=== PATIENT | male | born 1985 | race Caucasian/White ===

== ENCOUNTER → 2020-12-18 | Outpatient (CLI) | payer OTHER ==
[~2020-12-18] VITALS: Ht 177.8 cm; Wt 126.1 kg
[~2020-12-18] MED LIST: ADDERALL XR 2020 MG PO; BENTYL 10 MG CA10 M1 PO; COLESTID1 GM PO; COZAAR 25 MG TA25 M2 PO; CRESTOR10 MG PO; FEXOFENADINE-P1 EACH PO; LORAZEPAM 0.50.5 MG PO; OMEPRAZOLE 20 M20 M1 PO; PROAIR HFA8.5 GM INH; PROZAC40 MG PO; TEGRETOL200 MG PO; TOPROL XL50 MG PO; VERAPAMIL E.R240 M1 PO; VIBERZI100 MG PO; VRAYLAR3 MG PO
[2020-12-18 07:47] VITALS: BP 125/92
--- NOTE | 2020-12-27 13:15 | CATHLAB ---
[facility] [address] [place] [address] INVASIVE PROCEDURE REPORT Name: DESTINY LIVE Room #: REG EUGENE Naveen#: [id number] Admission: 12/18/20 Attend Phys: Prince Avina Discharge: Date of : 89 Report #: [id number] THIS REPORT FOR: cc: XU - Paula family physician/PCP XU - No family physician/PCP Pirnce Avina MD ~ APPROVED REPORT Study performed: 12/18/2020 08:48:34 Patient Details Patient Status: Out-Patient Room #: The patient is a 35 year-old male Event Personnel Prince Avina Community Outreach Director, Geneva Barlow RN RN, Doug Merrill RTR Monitor, Karely Sepulveda RTR, Jj Pelayo Angela RTR Vibrator Equipment Tester Procedures Performed Left Heart Cath w/or w/o Coronaries [id number] [facility] Art Access - R femoral artery* 17748 Initial Mod Sed Same Phys/QHP Gr5y 963124, supervision of conscious sedation Indication Chest pain Procedure Narrative The patient was brought electively to the Cardiac Catheterization Laboratory and was prepped and draped in a sterile manner. The Right Groin^ was infiltrated with 1% Lidocaine subcutaneous anesthesia. IV conscious sedation was used throughout procedure with appropriate monitoring and was performed in the presence of a registered nurse who was an independent trained observer other than the physician performing the procedure. A PINNACLE 4FR Sheath #[id number] sheath was inserted into the RFA^. Coronary angiography was performed using coronary diagnostic catheters. The right coronary system was accessed and visualized with a 4FR JR4 catheter. The left coronary system was accessed and visualized with a 4FR JL4 catheter. The left ventricle was accessed and visualized with a 4FR PIGTAIL catheter. Left ventricular/Aortic Valve gradient assessed via catheter pullback. Left ventriculogram was performed in 30 degree projection. Hemostasis was obtained with manual pressure following sheath removal without any complications. The patient tolerated the procedure well and there [facility] [address] [place] [address] INVASIVE PROCEDURE REPORT Name: DESTINY LIVE Room #: [facility]#: [id number] Admission: 12/18/20 Attend Phys: Prince Taylor Discharge: Date of : 89 Report #: [id number] were no complications associated with the procedure. There was no hematoma. Intraoperative Conscious Sedation Sedation start time: 10:28 Case end Time: 10:57 Versed 2 mg Fluoro Time: 2.60 minutes Dose: DAP 7423.90 cGycm2 1025 mGy Contrast Type and Amount: Omnipaque 45 ml Coronary Angiography The patient's coronary anatomy is right dominant. Diagnostic Cath Left Main Monitor large-caliber vessel Memorial bifurcates left into the left circumflex free of high-grade disease LAD Moderate to large caliber type III vessel coursing in the enteroenteric sulcus giving rise to septal diagonal branches. Then hooked the apex and terminates in the inferior posterior wall. There is no significant plaquing or high-grade lesions noted throughout its course Diagonal 1 Small caliber vessel without significant high-grade lesion Diagonal 2 Small caliber vessel with a significant high-grade lesion Circumflex Large-caliber nondominant vessel courses in the AV groove posteriorly giving rise to a small first marginal branch early on it continues on posteriorly giving rise to a large bifurcating second marginal branch and terminating the AV groove post tear aspect of left ventricle no high-grade lesions are noted OM1 Small caliber vessel without significant lesion OM2 Moderate to large caliber vessel terminates as a bifurcating branch free of significant stenosis Right Coronary Large-caliber vessel normal origin proceeds in AV groove posteriorly to the crux of the heart were gives rise to small posterior descending artery. No high-grade lesions are noted R PDA Small caliber vessel without significant stenosis present as it courses in the posterior interventricular sulcus towards the Left Ventriculography Left Ventriculography was not performed. Hemodynamics The aortic pressure is 127/79 mmHg with a mean of 100 mmHg. The left [facility] [address] [place] [address] INVASIVE PROCEDURE REPORT Name: CALOSDESTINY Issac [facility] [id number] Admission: 12/18/20 Attend Phys: Prince Taylor Discharge: Date of : 89 Report #: [id number] ventricular pressure is 125/5 mmHg with a mean of mmHg. The left ventricular end diastolic pressure is 10 mmHg. Pullback from the left ventricle to the aorta revealed no gradient across the aortic valve. Conclusion 1. Normal coronary arteries 2. Normal hemodynamic Recommendations Cardiac Risk Reduction Program <ELECTRONICALLY SIGNED> By: Prince Avina MD 12/27/20 1314 1314 1314 Prince Avina MD /INF
== END | disposition home or self-care (01) ==
LOC: CATH 07:12
PROVIDERS: ATTEND Internal Medicine
DX: R07.9 Chest pain, unspecified (principal); I25.10 Atherosclerotic heart disease of native coronary artery without angina pectoris; I10 Essential (primary) hypertension; E78.5 Hyperlipidemia, unspecified; F31.9 Bipolar disorder, unspecified; E66.9 Obesity, unspecified; Z98.890 Other specified postprocedural states; Z79.899 Other long term (current) drug therapy; Z87.891 Personal history of nicotine dependence; Z82.49 Family history of ischemic heart disease and other diseases of the circulatory system